=== PATIENT | female | born 1965 | race Caucasian/White ===

== ENCOUNTER → 2016-08-02 | Outpatient (CLI) | payer MEDICARE, MEDICAID ==
[2016-08-02 09:23] LABS: FREE T3 4.11 pg/mL (2.77-5.27)
[2016-08-02 09:37] LABS: THYROID STIMULATING HORMONE 2.59 uIU/mL (0.47-4.68)
[2016-08-03 15:38] LABS: IMMUNOGLOBULIN A 275 mg/dL (87-352); IMMUNOGLOBULIN G 1135 mg/dL (700-1600)
[2016-08-04 11:49] LABS: IMMUNOGLOBULIN M 262 mg/dL (26-217); LYME DISEASE IGG AND IGM AB <0.91 ISR (0.00-0.90)
== END ==
LOC: OD 07:33
PROVIDERS: ATTEND Specialist
DX: E11.9 Type 2 diabetes mellitus without complications (principal); E05.90 Thyrotoxicosis, unspecified without thyrotoxic crisis or storm; E53.8 Deficiency of other specified B group vitamins
CPT/HCPCS: 36415; 82607; 82784; 83036; 84439; 84443; 84481; 86617; 86618

== ENCOUNTER → 2016-08-17 | Outpatient (CLI) | payer MEDICARE, MEDICAID | LOC: RAD 10:20 | PROVIDERS: ATTEND Physician Assistant | DX: M25.511 Pain in right shoulder (principal) ==